=== PATIENT | female | born 1985 | race Caucasian/White ===

== ENCOUNTER 2017-10-19 12:18 | Emergency (ER) | payer MEDICAID ==
[2017-10-19 14:48] LABS: URINE BLOOD (Dip) POC Negative (NEGATIVE); URINE GLUCOSE (Dip) POC Negative (NEGATIVE); URINE KETONES (Dip) POC Negative (NEGATIVE); URINE LEUKOCYTE EST (Dip) POC Negative (NEGATIVE); URINE NITRITE (Dip) POC Negative (NEGATIVE); URINE TOTAL PROTEIN POC Negative (NEGATIVE)
[2017-10-19] MEDS: KETOROLAC 60 MG INJ IM (14:50)
== END 2017-10-19 15:45 | disposition home or self-care (01) ==
LOC: FTE 12:18
DX: S39.91XA Unspecified injury of abdomen, initial encounter (principal); W18.30XA Fall on same level, unspecified, initial encounter; Y92.9 Unspecified place or not applicable
CPT/HCPCS: 73510; 81003; 81025; 96372; 99284-25

== ENCOUNTER 2018-09-19 14:02 | Emergency (ER) | payer MEDICAID ==
[2018-09-19] MEDS: KETOROLAC 30 MG INJ IM (14:44)
== END 2018-09-19 15:08 | disposition home or self-care (01) ==
LOC: FTE 15:08
DX: M54.42 Lumbago with sciatica, left side (principal)
CPT/HCPCS: 81025; 96372; 99284-25